=== PATIENT | male | born 1975 | race Caucasian/White ===

== ENCOUNTER → 2017-08-14 | Outpatient (CLI) | payer OTHER ==
--- NOTE | 2017-08-14 16:36 | RAD ---
Examination: 2 views of the chest. History: History of pneumonia. Comparison: 01/24/2012 Findings: The cardiomediastinal silhouette grossly appears unremarkable. There is no acute infiltrate or visualized pneumothorax. Small nodule or granuloma identified in the left lower lobe of the lungs grossly similar to prior exam from 2012. Impression: No acute cardiopulmonary findings.
== END | disposition home or self-care (01) ==
LOC: RAD 16:08
PROVIDERS: ATTEND Internal Medicine
DX: J16.8 Pneumonia due to other specified infectious organisms (principal)
CPT/HCPCS: 71020

== ENCOUNTER 2021-01-04 20:19 | Emergency (ER) | payer OTHER ==
[~2021-01-04] VITALS: Ht 190.5 cm; Wt 161.3 kg
[~2021-01-04 20:19] MED LIST: ACET325T9 PO; ATOR20TA58 PO; DAPA10TA PO; LINA5TAB PO
[2021-01-04] MEDS ORDERED: diphenhydrAMINE 50 MG/ML VIAL IVP ONE (21:15)
[2021-01-04] MEDS ORDERED: methylPREDNISolone SOD SUCC PF 125 MG/2 ML VIAL. IV ONE (21:15)
[2021-01-04] MEDS ORDERED: FAMOTIDINE 20 MG/2 ML VIAL IVP ONE (21:15)
[2021-01-04] MEDS ORDERED: EPINEPHrine 1 MG/ML VIAL IM ONE (23:00)
[2021-01-05] MEDS ORDERED: FAMO-63 PO (00:14)
[2021-01-05] MEDS ORDERED: PRED20TA PO (00:14)
[2021-01-05] MEDS ORDERED: EPIPEN 2-P0.3 MG/0.3 IM (00:14)
--- NOTE | 2021-01-05 00:14 | PHYS DOC ---
Past Medical History Past Medical History: Diabetes-Type II, High Cholesterol Past Surgical History: Other Additional Past Surgical Histo: LEFT KNEE Smoking Status: Former Smoker Alcohol Use: Occasionally Drug Use: None General Adult EDM: Chief Complaint: ALLERGIC REACTION HPI: HPI: Patient is a 45 year old male who presented to ER after being stung by bees at home today. The bee stung his right middle finger. He started feeling shortness of air and having trouble with swallowing so he came here for evaluation. Patient denies any abdominal pain, no nausea vomiting, no chest pain, no headache, no blurry vision. Review of Systems: Review of Systems: Constitutional: Denies fever or chills. [] Eyes: Denies change in visual acuity. [] HENT: Denies nasal congestion or sore throat. [] Respiratory: Denies cough or shortness of breath. [] Cardiovascular: Denies chest pain or edema. [] GI: Denies abdominal pain, nausea, vomiting, bloody stools or diarrhea. [] : Denies dysuria. [] Musculoskeletal: Denies back pain or joint pain. [] Integument: rash on right middle finger. Neurologic: Denies headache, focal weakness or sensory changes. [] Endocrine: Denies polyuria or polydipsia. [] Lymphatic: Denies swollen glands. [] Psychiatric: Denies depression or anxiety. [] Heart Score: C/O Chest Pain: N/A Risk Factors: Risk Factors: DM, Current or recent (<one month) smoker, HTN, HLP, family history of CAD, obesity. Risk Scores: Score 0 - 3: 2.5% MACE over next 6 weeks - Discharge Home Score 4 - 6: 20.3% MACE over next 6 weeks - Admit for Clinical Observation Score 7 - 10: 72.7% MACE over next 6 weeks - Early Invasive Strategies Current Medications: Current Medications Medications (Trade) Dose Ordered Sig/Ari Start Time Stop Time Status Last Admin Dose Admin Diphenhydramine HCl (Benadryl) 25 mg 1X ONCE 01/04/21 21:15 01/04/21 21:16 DC 01/04/21 20:52 25 MG Epinephrine HCl (Adrenalin) 0.5 mg 1X ONCE 01/04/21 23:00 01/04/21 23:01 DC 01/04/21 22:54 0.5 MG Famotidine (Pepcid Vial) 20 mg 1X ONCE 01/04/21 21:15 01/04/21 21:16 DC 01/04/21 20:53 20 MG Methylprednisolone Sodium Succinate (SOLU-Medrol 125MG VIAL) 125 mg 1X ONCE 01/04/21 21:15 01/04/21 21:16 DC 01/04/21 20:52 125 MG Allergies: Allergies: Allergies Coded Allergies Type Severity Reaction Last Updated Verified No Known Drug Allergies 09/05/18 No Physical Exam: PE: Constitutional: Well developed, well nourished, no acute distress, non-toxic appearance. [] HENT: Normocephalic, atraumatic, bilateral external ears normal, oropharynx moist, no oral exudates, nose normal. NO ANGIOEDEMA Eyes: PERRLA, EOMI, conjunctiva normal, no discharge. [] Neck: Normal range of motion, no tenderness, supple, no stridor. [] Cardiovascular:Heart rate regular rhythm, no murmur [] Lungs & Thorax: Bilateral breath sounds clear to auscultation [] Abdomen: Bowel sounds normal, soft, no tenderness, no masses, no pulsatile masses. [] Skin: Warm, dry, no erythema, no rash. swelling with erythema at the tip of right middle finger. Back: No tenderness, no CVA tenderness. [] Extremities: No tenderness, no cyanosis, no clubbing, ROM intact, no edema. [] Neurologic: Alert and oriented X 3, normal motor function, normal sensory function, no focal deficits noted. [] Psychologic: Affect normal, judgement normal, mood normal. [] Current Patient Data: Vital Signs: Vital Signs Date Time Temp Pulse Resp B/P (MAP) Pulse Ox O2 Delivery O2 Flow Rate FiO2 01/04/21 20:35 98.0 88 18 155/84 (107) 97 Room Air 98.0 EKG: EKG: [] Radiology/Procedures: Radiology/Procedures: [] Course & Med Decision Making: Course & Med Decision Making Pertinent Labs and Imaging studies reviewed. (See chart for details) Patient was given medication in the ED, he felt much better. Dragon Disclaimer: Hoa Disclaimer: This electronic medical record was generated, in whole or in part, using a voice recognition dictation system. Departure Departure Impression: Primary Impression: Bee sting allergy Disposition: HOME / SELF CARE / HOMELESS Condition: IMPROVED Referrals: KEKE ARMENTA MD (PCP) follow up with your doctor as needed Patient Instructions: Bee, Wasp, or Hornet Sting Additional Instructions: Thank you for visiting our Emergency Department. We appreciate you trusting us with your care. If any additional problems come up don't hesitate to return to visit us. Please follow up with your primary care provider so they can plan additional care if needed and know about the problem that you had. If symptoms worsen come back to the Emergency Department. Any concerning symptoms that start such as chest pain, shortness of air, weakness or numbness on one side of the body, running high fevers or any other concerning symptoms return to the ER. Scripts Epinephrine (EPIPEN 2-RONNIE) 0.3 Mg/0.3 Ml Auto.injct 1 SYR IM ONCE for 1 Day, #1 PACKET 0 Refills Prov: ERIC RING DO 01/05/21 Famotidine (PEPCID) 20 Mg Tablet 20 MG PO HS for 7 Days, #7 TAB Prov: ERIC RING DO 01/05/21 Prednisone (PREDNISONE) 20 Mg Tablet 1 TAB PO DAILY, #5 TAB Prov: ERIC RING DO 01/05/21 ERIC RING DO Jan 05, 2021 00:14
[2021-01-05 00:20] VITALS: BP 124/64
== END 2021-01-05 00:27 | disposition home or self-care (01) ==
LOC: ER 20:19
DX: S60.462A Insect bite (nonvenomous) of right middle finger, initial encounter (principal); E11.9 Type 2 diabetes mellitus without complications; E78.00 Pure hypercholesterolemia, unspecified; Z87.891 Personal history of nicotine dependence; Z98.890 Other specified postprocedural states; W57.XXXA Bitten or stung by nonvenomous insect and other nonvenomous arthropods, initial encounter; Y93.89 Activity, other specified; Y92.89 Other specified places as the place of occurrence of the external cause; Y99.8 Other external cause status
CPT/HCPCS: 96372; 96374; 96375; 99285; J0171; J1200; J2930; J3490